=== PATIENT | female | born 1995 | race Caucasian/White ===

== ENCOUNTER 2019-03-19 22:25 | Emergency (ER) | payer BC, MEDICAID ==
[~2019-03-19] VITALS: Ht 167.6 cm; Wt 74.8 kg
[2019-03-19 22:50] VITALS: BP 106/69
--- NOTE | 2019-03-19 23:04 | NUR ---
PT TRIAGED, SENT BACK TO LOBBY AWAITING FOR BED
--- NOTE | 2019-03-20 01:00 | NUR ---
PT AMBULATED TO BED
--- NOTE | 2019-03-20 01:10 | NUR ---
23/F PRESENTED TO ED WITH C/O DULL, ACHING, INTERMITTENT L LOWER BACK PAIN, X4 MONTHS BUT WORSENED X1 DAY. DENIES PAIN AT THIS TIME. REPORTS INTERMITTENT RADIATING TO R LOWER BACK. DENIES TRAUMA/INJURY. DENIES DYSURIA. NO CHANGES IN URINATION PATTERN. HX ANXIETY; DENIES RX
[2019-03-20] MEDS ORDERED: KETOROLAC 30 MG/ML VIAL IM ONE (02:25)
--- NOTE | 2019-03-20 03:00 | NUR ---
PT LAYING IN BED NO SIGNS OF DISTRESS. BOYFRIEND AT BEDSIDE.
--- NOTE | 2019-03-20 04:30 | NUR ---
PT VSS. NO SIGNS OF DISTRESS. STATES NO PAIN AT THIS TIME. "FEELS BETTER"
[2019-03-20 04:32] VITALS: BP 113/61
--- NOTE | 2019-03-20 04:32 | NUR ---
Patient discharged with v/s stable. Written and verbal after care instructions given and explained. Patient alert, oriented and verbalized understanding of instructions. Ambulatory with steady gait. All questions addressed prior to discharge. ID band removed. Patient advised to follow up with PMD. Rx of NAPROSYN, VALIUM given. Patient educated on indication of medication including possible reaction and side effects. Opportunity to ask questions provided and answered.
== END 2019-03-20 04:32 | disposition home or self-care (01) ==
LOC: MED 22:25
DX: R10.9 Unspecified abdominal pain (principal); F41.9 Anxiety disorder, unspecified
CPT/HCPCS: 96372; 99283; J1885